=== PATIENT | male | born 1985 | race African-American/Black ===

== ENCOUNTER 2016-06-13 18:50 | Emergency (ER) | payer OTHER ==
[~2016-06-13] VITALS: Ht 182.9 cm; Wt 122.3 kg
[~2016-06-13 18:50] MED LIST: NOHOMEMEDS
[2016-06-13] MEDS ORDERED: VIBRAMYCIN100 MG PO (21:26)
[2016-06-13 21:42] VITALS: BP 154/87
== END 2016-06-13 21:42 | disposition home or self-care (01) ==
LOC: EME 18:50 → EXP 18:50
PROC: 0H9CXZZ Drainage of Left Upper Arm Skin, External Approach (ICD-10-PCS; principal; 2016-06-13)
DX: L02.412 Cutaneous abscess of left axilla (principal); F17.200 Nicotine dependence, unspecified, uncomplicated
CPT/HCPCS: 99281; 99284